=== PATIENT | male | born 1990 | race Caucasian/White ===

== ENCOUNTER 2018-05-20 08:24 | Emergency (ER) | payer OTHER ==
[2018-05-20] MEDS ORDERED: NS 1,000 ML IV ONE (09:04)
[2018-05-20] MEDS ORDERED: ONDANSETRON 4 MG/2 ML VIAL IVP ONE (09:04)
[2018-05-20] MEDS ORDERED: LORazepam 2 MG/ML INJ IVP ONE (09:04)
[2018-05-20] MEDS ORDERED: ALBUTEROL 3 ML DEYVIAL IH ONE (09:04)
--- NOTE | 2018-05-20 09:07 | EDPHY ---
General Time Seen by Provider: 05/20/18 08:54 Narrative: CLINICAL IMPRESSION: Viral URI with cough, nausea and vomiting, mild dehydration ASSESSMENT/PLAN: 27-year-old otherwise healthy male presents to the emergency department with 4 days of URI symptoms with cough, nausea, and vomiting. No abdominal pain and no focal peritoneal findings on exam. Vital signs stable, afebrile, no hypoxia or respiratory distress. Lungs clear. Labs reassuring. Notable leukocytosis of 14 likely secondary to viral illness. No electrolyte imbalance or renal insufficiency. No clinical signs suggestive of acute mucopurulent otitis media , sinusitis, exudative tonsillitis, Parrish's angina, stomatitis, lower respiratory disease, pneumonia. Abdomen is soft. Patient received IV fluids, albuterol neb, Zofran and Ativan secondary to anxiety and was sleeping comfortably on reassessment. He reported feeling "100% better". I do not feel this patient requires emergent imaging at this time. He was given prescriptions to use at home, PCP follow-up recommended, warning signs return to ED sooner outlined and discharge. DIFFERENTIAL DX: Differential includes but not limited to viral URI, influenza, influenza like syndrome, dehydration, gastroenteritis, electrolyte imbalance ED PROCEDURES: See lab and/or imaging results below ED COURSE: 9:05 a.m.: Patient seen assessed by myself. Vital signs stable, no acute distress, respiratory distress, hypoxia. Plan for IV, IV fluid bolus, labs, albuterol neb and Ativan 10:20 A.M.: Patient reassessed, states "I feel 100% better after IV fluids". Resting comfortably. Vital signs remained stable. Will plan to discharge with Zofran, albuterol inhaler, Tessalon Perles. PCP follow-up CHIEF COMPLAINT: Nausea, vomiting and cough HPI: 27-year-old otherwise healthy male presents to the emergency department with approximately 4 days of URI symptoms with cough. Patient also over the last 2 days has been nauseous and throwing up. He was prescribed amoxicillin by a family practice provider 1 day into his symptoms. He had a negative rapid strep test. Throat culture is pending. Influenza was not tested. Patient reports a past history of hyperemesis cannabinoid syndrome but admits that he has not smoked marijuana in over 6 months. He thinks he is vomiting either due to amoxicillin or coughing so hard. No diarrhea. He is constipated and had a hard bowel movement this morning. No abdominal pain. No fevers or chills. Patient states he feels anxious mostly over the fact that he had to postpone an important trip to [place] for a wedding and is nervous about the cost of this. He denies taking anything other than amoxicillin. PAST MEDICAL HISTORY: None reported See nurse/triage notes for additional history if applicable Pertinent Past Surgical History: None reported Family History: Noncontributory Social History: Otherwise healthy, smokes REVIEW OF SYSTEMS: All other systems negative Constitutional: No fever, no chills, positive for appetite change. Eyes: No discharge, vision change ENT: Positive for sore throat, positive for congestion, ear pain. Cardiovascular: No chest pain, no palpitations. Respiratory: Positive for cough, no shortness of breath. Gastrointestinal: No abdominal pain, positive for nausea and vomiting, diarrhea. Genitourinary: No hematuria, dysuria, flank pain, pelvic pain Musculoskeletal: No back pain, joint swelling, joint pain, myalgias. Skin: No rashes, color change. Neurological: No headache, dizziness, weakness. PHYSICAL EXAM: General Appearance: Alert, oriented, appropriate, cooperative, NAD, well hydrated, non-toxic appearing, VSS, no hypoxia. HEENT: TMs are clear bilaterally no perforation or FB, no injection, no evidence of serous or mucopurulent otitis. Oropharynx clear is no erythema or exudates, no tonsillar hypertrophy or asymmetry. Dentition without abnormality. Eyes: PERRLA, no acute vision change, nystagmus, swelling, discharge, pain or photosensitivity. Conjunctiva pink, no pallor or injection Neck: Supple, nontender, no lymphadenopathy, no midline pain, FROM, no meningismus. Respiratory: There are no retractions, lungs are clear to auscultation. Mildly diminished breath sounds bilateral lower lobes Cardiac: Regular rate and rhythm, no murmurs or gallops. Gastrointestinal: Abdomen is soft, nontender, bowel sounds normal, no masses/ hernia, no rigidity, guarding or focal peritoneal findings. Neurological: [ Alert and oriented x 3 Skin: Warm, dry, no rashes, no nodules on palpation. MEDICAL DECISION MAKING: Patient was seen independently. Secondary supervising physician at time of evaluation was Dr. Baez. Diagnosis: Viral URI, nausea, vomiting, mild dehydration. New, requires workup Summary: See Assessment and Plan for summary of ED visit Clinical lab tests: ordered / reviewed. Independent visualization of images, tracing, or specimens: Not ordered. Decision to obtain medical records or history from someone other than the patient: No Review / Summarize previous medical records: None available Discussed patient with another provider: No Patient Progress: Improved, stable for discharge. - History Smoking Status: Current every day smoker - Objective Vital Signs: Initial Vital Signs Temperature (C) 37 C 05/20/18 08:27 Heart Rate 91 05/20/18 08:27 Respiratory Rate 17 05/20/18 08:27 Blood Pressure 142/100 H 05/20/18 08:27 O2 Sat (%) 95 05/20/18 08:27 O2 Delivery Mode Room Air Allergies/Adverse Reactions: No Known Allergies Allergy (Verified 05/20/18 08:26) Home Medications: Medication Instructions Recorded AMOXICILLIN 05/20/18 Albuterol Hfa Anes Only [Proair 2 puffs IH QID #1 mdi 05/20/18 Hfa Icu (*)] Benzonatate [Tessalon Pearles (RX)] 100 mg PO TID PRN #20 cap 05/20/18 Ondansetron Odt [Zofran Odt] 4 mg PO Q4PRN PRN #7 tab 05/20/18 Laboratory Results: Laboratory Results 05/20/18 09:15 05/20/18 09:15 05/20/18 05/20/18 09:15 09:15 WBC 14.04 10^3/uL H 10^3/uL (3.80-9.50) RBC 5.43 10^6/uL 10^6/uL (4.40-6.38) Hgb 16.9 g/dL g/dL (13.7-17.5) Hct 50.2 % % (40.0-51.0) MCV 92.4 fL fL (81.5-99.8) MCH 31.1 pg pg (27.9-34.1) MCHC 33.7 g/dL g/dL (32.4-36.7) RDW 13.3 % % (11.5-15.2) Plt Count 304 10^3/uL 10^3/uL (150-400) MPV 9.7 fL fL (8.7-11.7) Neut % (Auto) 69.7 % % (39.3-74.2) Lymph % (Auto) 21.4 % % (15.0-45.0) [place] % (Auto) 6.9 % % (4.5-13.0) Eos % (Auto) 0.9 % % (0.6-7.6) Baso % (Auto) 0.5 % % (0.3-1.7) Nucleat RBC Rel Count 0.0 % % (0.0-0.2) Absolute Neuts (auto) 9.79 10^3/uL H 10^3/uL (1.70-6.50) Absolute Lymphs (auto) 3.00 10^3/uL 10^3/uL (1.00-3.00) Absolute Monos (auto) 0.97 10^3/uL H 10^3/uL (0.30-0.80) Absolute Eos (auto) 0.12 10^3/uL 10^3/uL (0.03-0.40) Absolute Basos (auto) 0.07 10^3/uL 10^3/uL (0.02-0.10) Absolute Nucleated RBC 0.00 10^3/uL 10^3/uL (0-0.01) Immature Gran % 0.6 % % (0.0-1.1) Immature Gran # 0.09 10^3/uL 10^3/uL (0.00-0.10) Sodium 139 mEq/L mEq/L (135-145) Potassium 4.0 mEq/L mEq/L (3.5-5.2) Chloride 102 mEq/L mEq/L (97-110) Carbon Dioxide 25 mEq/l mEq/l (22-31) Anion Gap 12 mEq/L mEq/L (6-14) BUN 16 mg/dL mg/dL (7-23) Creatinine 1.3 mg/dL mg/dL (0.7-1.3) Estimated GFR > 60 Glucose 96 mg/dL mg/dL (70-100) Calcium 9.8 mg/dL mg/dL (8.5-10.4) Medications Given: Discontinued Medications Albuterol (Proventil Neb) 3 ml IH EDNOW ONE Stop: 05/20/18 09:05 Last Admin: 05/20/18 09:15 Dose: 3 ml Sodium Chloride (Ns) 1,000 mls @ 0 mls/hr IV EDNOW ONE; Wide Open PRN Reason: Protocol Stop: 05/20/18 09:05 Last Admin: 05/20/18 09:22 Dose: 1,000 mls Lorazepam (Ativan Injection) 1 mg IVP EDNOW ONE Stop: 05/20/18 09:05 Last Admin: 05/20/18 09:22 Dose: 1 mg Ondansetron HCl (Zofran) 4 mg IVP EDNOW ONE Stop: 05/20/18 09:05 Last Admin: 05/20/18 09:22 Dose: 4 mg Departure - Departure Disposition: Home, Routine, Self-Care Clinical Impression: Viral URI with cough Nausea and vomiting Qualifiers: Vomiting type: unspecified Vomiting Intractability: non-intractable Qualified Code(s): R11.2 - Nausea with vomiting, unspecified Condition: Good Instructions: Acute Nausea and Vomiting (ED), Viral Syndrome (ED) Additional Instructions: DISCHARGE INSTRUCTIONS FROM YOUR DOCTOR Thank you for visiting our emergency department today. You were treated by a physician events assistant today and your case was reviewed with our ED Attending physician. Please keep in mind that discharge from the emergency department does not mean that there is nothing wrong - it simply means that we have not identified an emergency condition that requires further evaluation or treatment in the hospital. You should always plan to follow up with primary care for re- evaluation of your condition in the next 2-3 days. If you have been referred to a specialist, please call as soon as possible (today or tomorrow) to schedule your follow up appointment at the appropriate time. LABORATORY EVALUATION WAS REASSURING TODAY. NO SIGNS OF SEVERE DEHYDRATION OR ELECTROLYTE IMBALANCE. I GAVE YOU PRESCRIPTION FOR AN ALBUTEROL INHALER TO USE WITH A SPACER EVERY 4 HR NEEDED FOR COUGH. TESSALON PERLES WERE PRESCRIBED TO USE FOR COUGH IF NEEDED. ZOFRAN TO USE FOR NAUSEA IF NEEDED. PLEASE STAY WELL-HYDRATED. GET PLENTY OF REST. PLEASE SEE A PRIMARY CARE PROVIDER IN THE NEXT 24-48 HOURS TO RECHECK. IF YOU DO NOT HAVE 1 A REFERRAL WAS GIVEN. RETURN TO THE EMERGENCY DEPARTMENT FOR WORSENING OR SEVERE COUGH OR SHORTNESS OF BREATH, HIGH FEVERS, CHEST PAIN, SEVERE ABDOMINAL PAIN, BLOODY STOOLS, OR ANY OTHER CONCERNS. People present with illnesses and injuries in different ways, and it is always possible that we have missed something. You may always return for re-evaluation if symptoms worsen or if they are not improving or if you develop new/different symptoms. Again, thank you for choosing our emergency department. We hope that you feel better. Referrals: NONE *PRIMARY CARE P,. [Primary Care Provider] - As per Instructions Javier Wetzel DO [Doctor of Osteopathy] - 2-3 days, call for appt. Prescriptions: Albuterol Hfa Anes Only [Proair Hfa Icu (*)] 2 puffs IH QID #1 mdi Benzonatate [Tessalon Pearles (RX)] 100 mg PO TID PRN #20 cap PRN Reason: Cough, Mild Ondansetron Odt [Zofran Odt] 4 mg PO Q4PRN PRN #7 tab PRN Reason: Nausea/Vomiting, Can'T Take Po
[2018-05-20 09:37] LABS: PLATELET COUNT 304 10^3/uL (150-400)
[2018-05-20 10:38] VITALS: BP 113/65
== END 2018-05-20 10:51 | disposition home or self-care (01) ==
DX: J06.9 Acute upper respiratory infection, unspecified (principal); E86.9 Volume depletion, unspecified
CPT/HCPCS: 96374; J2060; J2405; J7613

== ENCOUNTER 2018-05-22 06:26 | Emergency (ER) | payer OTHER ==
[2018-05-22] MEDS ORDERED: NS 1,000 ML IV ONE (07:29)
[2018-05-22] MEDS ORDERED: ONDANSETRON 4 MG/2 ML VIAL IVP ONE (07:29)
[2018-05-22] MEDS ORDERED: LORazepam 2 MG/ML INJ IVP ONE (07:29)
--- NOTE | 2018-05-22 07:33 | EDPHY ---
H & P Stated Complaint: Panic Attack x36 hours, anxious, denies SI/HI Time Seen by Provider: 05/22/18 07:10 HPI/ROS: CHIEF COMPLAINT: Anxiety and insomnia HISTORY OF PRESENT ILLNESS: 27-year-old male with depression presents with anxiety and insomnia. Onset of runny nose, sore throat and cough 1 week ago. He saw his primary care physician the following day and was prescribed amoxicillin and prednisone. Since starting these medications, he has felt quite anxious. Significant anxiety throughout the day, exacerbated by doing Internet searches. Associated with insomnia and posttussive emesis. Did not sleep at all last night. Was seen in this emergency department 2 days ago for similar symptoms. Given Ativan and Zofran with relief. Has now stopped prednisone and amoxicillin. No fever. History of depression, did not tolerate antidepressants. No suicidal or homicidal ideation. REVIEW OF SYSTEMS: complete 10 point ROS reviewed and is negative except for the noted elements in the HPI - Personal History Current Tetanus Diphtheria and Acellular Pertussis (TDAP): No - Medical/Surgical History Hx Asthma: No Hx Chronic Respiratory Disease: No Hx Diabetes: No Hx Cardiac Disease: No Hx Renal Disease: No Hx Cirrhosis: No Hx Alcoholism: No Hx HIV/AIDS: No Hx Splenectomy or Spleen Trauma: No Other PMH: SURG--ACL - Social History Smoking Status: Current every day smoker Alcohol Use: Sober Drug Use: None - Physical Exam Exam: General Appearance: Alert, pleasant, appears anxious Eyes: Pupils equal and round, no conjunctival pallor or injection ENT, Mouth: Mucous membranes moist Neck: Normal inspection Respiratory: Lungs are clear to auscultation, no wheezing Cardiovascular: Regular rate and rhythm Gastrointestinal: Abdomen is soft and nontender Neurological: A&O, nonfocal, normal gait Skin: Warm and dry Extremities: Normal inspection Psychiatric: Anxious Constitutional: Initial Vital Signs Temperature (C) 36.8 C 05/22/18 06:29 Heart Rate 107 H 05/22/18 06:29 Respiratory Rate 16 05/22/18 06:29 Blood Pressure 163/109 H 05/22/18 06:29 O2 Sat (%) 96 05/22/18 06:29 O2 Delivery Mode Room Air Allergies/Adverse Reactions: No Known Allergies Allergy (Verified 05/22/18 06:28) Home Medications: Medication Instructions Recorded AMOXICILLIN 05/20/18 Albuterol Hfa Anes Only [Proair 2 puffs IH QID #1 mdi 05/20/18 Hfa Icu (*)] Benzonatate [Tessalon Pearles (RX)] 100 mg PO TID PRN #20 cap 05/20/18 Ondansetron Odt [Zofran Odt] 4 mg PO Q4PRN PRN #7 tab 05/20/18 LORazepam [Ativan (RX)] 1 mg PO Q12 PRN #6 tab 05/22/18 Medical Decision Making - Diagnostics Imaging Results: Chest x-ray independently reviewed by me reveals no acute disease. ED Course/Re-evaluation: This patient presents with anxiety and insomnia after starting prednisone. This is most likely a side effect of steroids. Ativan 1 mg IV given. Chest x- ray reveals no evidence of pneumonia. There is no indication for mental health evaluation today. Will reassess after IV fluids and meds. 8:30 a.m.-feels better after IV Zofran and Ativan and would like to go home. Warning signs discussed. - Data Points Laboratory Results: Laboratory Results 05/22/18 07:46 05/22/18 07:46 05/22/18 05/22/18 07:46 07:46 WBC 10.62 10^3/uL H 10^3/uL (3.80-9.50) RBC 5.15 10^6/uL 10^6/uL (4.40-6.38) Hgb 16.1 g/dL g/dL (13.7-17.5) Hct 46.5 % % (40.0-51.0) MCV 90.3 fL fL (81.5-99.8) MCH 31.3 pg pg (27.9-34.1) MCHC 34.6 g/dL g/dL (32.4-36.7) RDW 13.1 % % (11.5-15.2) Plt Count 289 10^3/uL 10^3/uL (150-400) MPV 9.5 fL fL (8.7-11.7) Neut % (Auto) 59.8 % % (39.3-74.2) Lymph % (Auto) 29.8 % % (15.0-45.0) [place] % (Auto) 7.7 % % (4.5-13.0) Eos % (Auto) 1.6 % % (0.6-7.6) Baso % (Auto) 0.7 % % (0.3-1.7) Nucleat RBC Rel Count 0.0 % % (0.0-0.2) Absolute Neuts (auto) 6.36 10^3/uL 10^3/uL (1.70-6.50) Absolute Lymphs (auto) 3.16 10^3/uL H 10^3/uL (1.00-3.00) Absolute Monos (auto) 0.82 10^3/uL H 10^3/uL (0.30-0.80) Absolute Eos (auto) 0.17 10^3/uL 10^3/uL (0.03-0.40) Absolute Basos (auto) 0.07 10^3/uL 10^3/uL (0.02-0.10) Absolute Nucleated RBC 0.00 10^3/uL 10^3/uL (0-0.01) Immature Gran % 0.4 % % (0.0-1.1) Immature Gran # 0.04 10^3/uL 10^3/uL (0.00-0.10) Sodium 140 mEq/L mEq/L (135-145) Potassium 4.1 mEq/L mEq/L (3.5-5.2) Chloride 104 mEq/L mEq/L (97-110) Carbon Dioxide 24 mEq/l mEq/l (22-31) Anion Gap 12 mEq/L mEq/L (6-14) BUN 12 mg/dL mg/dL (7-23) Creatinine 1.0 mg/dL mg/dL (0.7-1.3) Estimated GFR > 60 Glucose 103 mg/dL H mg/dL (70-100) Calcium 9.7 mg/dL mg/dL (8.5-10.4) Medications Given: Discontinued Medications Sodium Chloride (Ns) 1,000 mls @ 0 mls/hr IV EDNOW ONE; Wide Open PRN Reason: Protocol Stop: 05/22/18 07:30 Last Admin: 05/22/18 07:57 Dose: 1,000 mls Lorazepam (Ativan Injection) 1 mg IVP EDNOW ONE Stop: 05/22/18 07:30 Last Admin: 05/22/18 07:46 Dose: 1 mg Ondansetron HCl (Zofran) 4 mg IVP EDNOW ONE Stop: 05/22/18 07:30 Last Admin: 05/22/18 07:48 Dose: 4 mg Departure - Departure Disposition: Home, Routine, Self-Care Clinical Impression: Anxiety, Upper respiratory infection Condition: Good Instructions: Upper Respiratory Infection (ED), Anxiety (ED) Additional Instructions: I think that your anxiety is a side effect of prednisone. Prednisone is a steroid. I'd suggest avoiding steroids in the future. Your chest Xray is normal today. You do not need antibiotics. I have prescribed Ativan. Ativan is a benzodiazepine that can help with anxiety. Take this medication only as needed for anxiety. Do not drive if you are taking Ativan. Referrals: PATIENCE JIMENEZ [Other] - 1-2 days without fail Prescriptions: LORazepam [Ativan (RX)] 1 mg PO Q12 PRN #6 tab PRN Reason: Anxiety
[2018-05-22 08:01] LABS: PLATELET COUNT 289 10^3/uL (150-400)
[2018-05-22 09:57] VITALS: BP 105/56
== END 2018-05-22 09:57 | disposition home or self-care (01) ==
DX: J06.9 Acute upper respiratory infection, unspecified (principal); F41.9 Anxiety disorder, unspecified; G47.00 Insomnia, unspecified; E86.9 Volume depletion, unspecified
CPT/HCPCS: 96374; J2060; J2405